=== PATIENT | male | born 1965 | race Caucasian/White ===

== ENCOUNTER 2017-05-15 10:04 | Day surgery (SDC) | payer OTHER ==
[2017-05-15] MEDS ORDERED: PROPOFOL 0 ML (11:01)
[2017-05-15] MEDS ORDERED: PROPOFOL 20 ML (11:09)
== END 2017-05-15 13:06 | disposition home or self-care (01) ==
LOC: GIL 10:04
DX: Z12.11 Encounter for screening for malignant neoplasm of colon (principal); K57.90 Diverticulosis of intestine, part unspecified, without perforation or abscess without bleeding; K64.8 Other hemorrhoids; E11.9 Type 2 diabetes mellitus without complications; I10 Essential (primary) hypertension; E66.01 Morbid (severe) obesity due to excess calories; Z68.42 Body mass index [BMI] 45.0-49.9, adult
CPT/HCPCS: 45378; 82962

== ENCOUNTER 2017-12-11 07:12 | Inpatient (IN) | payer OTHER ==
[2017-12-11] MEDS: ONDANSETRON 4 MG INJ IV (07:32)
[2017-12-11] MEDS: IPRATROPIUM (NEB) 0.5 MG/2.5 ML AMP INH (07:32)
[2017-12-11] MEDS: ALBUTEROL 0.083% (NEB) 2.5 MG/3 ML AMP INH (07:32)
[2017-12-11] MEDS: morphine 4 MG/ML VIAL IV (07:39)
[2017-12-11] MEDS: SOD CHLORIDE 0.9% 1,000 ML IV (07:46)
[2017-12-11 08:00] LABS: ADD MAN DIFF? NO
[2017-12-11 08:02] LABS: WHITE BLOOD COUNT 8.6 10^3/ul (4.8-10.8)
[2017-12-11 08:02] LABS: BASOPHIL # 0.1 10^3/ul (0.0-0.1); BASOPHILS % 0.6 % (0.0-2.0); EOSINOPHILS # 0.2 10^3/ul (0.0-0.5); EOSINOPHILS % 2.6 % (0.0-7.0); HEMATOCRIT 53.9 % (42.0-52.0); HEMOGLOBIN 16.3 g/dl (14.0-18.0); LYMPHOCYTES # 1.2 10^3/ul (0.8-2.9); MEAN CORPUSCULAR HEMOGLOBIN 26.7 pg (29.0-33.0); MEAN CORPUSCULAR HGB CONC 30.2 g/dl (32.0-37.0); MEAN CORPUSCULAR VOLUME 88.4 fl (82.0-101.0); MEAN PLATELET VOLUME 10.1 fl (7.4-10.4); MONOCYTE # 0.5 10^3/ul (0.3-0.9); MONOCYTES % 6.2 % (0.0-11.0); NEUTROPHIL # 6.5 10^3/ul (1.6-7.5); NEUTROPHILS % 75.8 % (39.0-77.0); PLATELET COUNT 225 10^3/UL (140-415)
[2017-12-11 08:18] LABS: ALANINE AMINOTRANSFERASE 66 IU/L (13-69); ALBUMIN 3.8 g/dl (3.3-4.9); ALKALINE PHOSPHATASE 82 IU/L (42-121); AMYLASE 43 U/L (11-123); ANION GAP 11 (8-16); ASPARTATE AMINO TRANSFERASE 94 IU/L (15-46); BILIRUBIN,INDIRECT 0.5 mg/dl (0-1.1); BILIRUBIN,TOTAL 0.5 mg/dl (0.2-1.3); BLOOD UREA NITROGEN 15 mg/dl (7-20); CALCIUM 8.7 mg/dl (8.4-10.2); CARBON DIOXIDE 33 mmol/L (21-31); CHLORIDE 98 mmol/L (97-110); CREATININE 0.65 mg/dl (0.61-1.24); GLUCOSE 274 mg/dl (70-220); LIPASE 79 U/L (23-300); POTASSIUM 4.5 mmol/L (3.5-5.1); SODIUM 137 mmol/L (135-144); TOTAL PROTEIN 7.6 g/dl (6.1-8.1)
[2017-12-11 08:29] LABS: B-TYPE NATRIURETIC PEPTIDE 55 PG/ML (0-125); TROPONIN-I < 0.010 ng/ml (0.000-0.120)
[2017-12-11 08:31] LABS: INR 0.96; PARTIAL THROMBOPLASTIN TIME 23.7 Sec (25.0-35.0); PROTIME 12.9 Sec (11.9-14.9)
[2017-12-11 08:34] LABS: D-DIMER 2416.69 ng/ml (<460)
[2017-12-11 09:17] LABS: ADD UMIC YES; UR ASCORBIC ACID 20 mg/dL (NEGATIVE); UR BILIRUBIN (Dip) NEGATIVE (NEGATIVE); UR BLOOD (Dip) NEGATIVE (NEGATIVE); UR CLARITY CLEAR (CLEAR); UR COLOR YELLOW (YELLOW); UR GLUCOSE (Dip) 3+ mg/dL (NEGATIVE); UR KETONES (Dip) NEGATIVE (NEGATIVE); UR LEUKOCYTE ESTERASE (Dip) NEGATIVE Leu/ul (NEGATIVE); UR MUCUS FEW /HPF (NONE SEEN); UR NITRITE (Dip) NEGATIVE (NEGATIVE); UR RBC 1 /HPF (0-5); UR SPECIFIC GRAVITY (Dip) 1.023 (1.003-1.030); UR TOTAL PROTEIN (Dip) 1+ mg/dl (NEGATIVE); UR UROBILINOGEN (Dip) NEGATIVE (NEGATIVE); UR WBC 1 /HPF (0-5)
[2017-12-11] MEDS: SOD CHLORIDE 0.9% 100 ML (10:05)
[2017-12-11] MEDS: IOHEXOL 100 ML (10:05)
[2017-12-11] MEDS: IOHEXOL 350MG/ML 50 ML BTL (10:06)
[2017-12-11] MEDS ORDERED: hydrALAzine 20 MG INJ (10:26)
[2017-12-11] MEDS: ENOXAPARIN 60 MG/0.6 ML SYG SC (10:31)
[2017-12-11] MEDS: hydrALAzine 20 MG INJ IV (10:32)
[2017-12-11] MEDS ORDERED: ACETAMINOPHEN 325 MG TAB PO (11:00)
[2017-12-11] MEDS ORDERED: ONDANSETRON 4 MG INJ IV ×2 (11:00→15:00)
[2017-12-11] MEDS: IPRATROPIUM (NEB) 0.5 MG/2.5 ML AMP NEB (11:34)
[2017-12-11] MEDS: ALBUTEROL 0.083% (NEB) 2.5 MG/3 ML AMP NEB (11:34)
[2017-12-11] MEDS: SOD CHLORIDE 0.9% 500 ML IV ×2 (12:18→12:19)
[2017-12-11] MEDS ORDERED: HEPARIN 1000 UNITS/ML 10 ML INJ IV ×2 (15:00)
[2017-12-11] MEDS ORDERED: ZOLPIDEM 5 MG TAB PO (15:00)
[2017-12-11] MEDS ORDERED: LORAZEPAM 0.5 MG TAB PO (15:00)
[2017-12-11] MEDS ORDERED: hydrALAzine 20 MG INJ IV (15:30)
[2017-12-11] MEDS ORDERED: ALBUTEROL 0.083% (NEB) 2.5 MG/3 ML AMP HHN (15:30)
[2017-12-11 16:05] LABS: CREATINE KINASE 28 IU/L (23-200)
[2017-12-11 16:19] LABS: CK INDEX 0.8; CK-MB < 0.22 ng/ml (0.0-2.4); TROPONIN-I < 0.010 ng/ml (0.000-0.120)
[2017-12-11] MEDS: DOCUSATE SODIUM 100 MG CAP PO (16:53)
[2017-12-11] MEDS: INSULIN GLARGINE [LANTus] (100 UNITS/ML) SYG SC (17:03)
[2017-12-11] MEDS: metFORMIN 500 MG TAB PO (17:05)
[2017-12-11] MEDS: INSULIN ASPART [NOVOLOG] 3 ML PEN SC ×2 (17:10→20:25)
[2017-12-11 20:10] LABS: AMPHETAMINE/METHAMPHETAMINE Negative (NEGATIVE); BARBITURATES Negative (NEGATIVE); BENZODIAZEPINES Negative (NEGATIVE); CANNABINOIDS Negative (NEGATIVE); COCAINE Negative (NEGATIVE); OPIATES Positive (NEGATIVE)
[2017-12-11] MEDS: FAMOTIDINE 20 MG TAB PO (20:21)
[2017-12-11 23:28] LABS: CREATINE KINASE 29 IU/L (23-200)
[2017-12-11] MEDS: HEPARIN 25000 UNITS/250 ML 250 ML IV (23:29)
[2017-12-12] MEDS: ACCU-CHEK XX (02:47)
[2017-12-12] MEDS: DOCUSATE SODIUM 100 MG CAP PO ×3 (02:47→21:04)
[2017-12-12] MEDS: INSULIN ASPART [NOVOLOG] 3 ML PEN SC ×5 (03:40→21:00)
[2017-12-12] MEDS: ACETAMINOPHEN 325 MG TAB PO (05:37)
[2017-12-12 06:04] LABS: ADD MAN DIFF? NO
[2017-12-12 06:14] LABS: BASOPHIL # 0.1 10^3/ul (0.0-0.1); BASOPHILS % 0.5 % (0.0-2.0); EOSINOPHILS # 0.3 10^3/ul (0.0-0.5); EOSINOPHILS % 3.5 % (0.0-7.0); HEMATOCRIT 54.9 % (42.0-52.0); HEMOGLOBIN 16.3 g/dl (14.0-18.0); LYMPHOCYTES # 1.3 10^3/ul (0.8-2.9); LYMPHOCYTES % 13.9 % (15.0-51.0); MEAN CORPUSCULAR HEMOGLOBIN 26.8 pg (29.0-33.0); MEAN CORPUSCULAR HGB CONC 29.7 g/dl (32.0-37.0); MEAN CORPUSCULAR VOLUME 90.3 fl (82.0-101.0); MEAN PLATELET VOLUME 10.2 fl (7.4-10.4); MONOCYTE # 0.7 10^3/ul (0.3-0.9); MONOCYTES % 7.7 % (0.0-11.0); NEUTROPHILS % 73.7 % (39.0-77.0); PLATELET COUNT 238 10^3/UL (140-415); RED BLOOD COUNT 6.08 10^6/ul (4.70-6.10)
[2017-12-12 06:14] LABS: WHITE BLOOD COUNT 9.5 10^3/ul (4.8-10.8)
[2017-12-12 06:22] LABS: INR 0.98; PROTIME 13.1 Sec (11.9-14.9)
[2017-12-12] MEDS: morphine 2 MG INJ IV (06:32)
[2017-12-12 06:38] LABS: PARTIAL THROMBOPLASTIN TIME 75.7 Sec (25.0-35.0)
[2017-12-12 06:40] LABS: HEMOGLOBIN A1C 10.2 % (0-5.9)
[2017-12-12 06:55] LABS: ALANINE AMINOTRANSFERASE 73 IU/L (13-69); ALBUMIN 3.8 g/dl (3.3-4.9); ALBUMIN/GLOBULIN RATIO 1.05; ALKALINE PHOSPHATASE 82 IU/L (42-121); ANION GAP 10 (8-16); ASPARTATE AMINO TRANSFERASE 101 IU/L (15-46); BILIRUBIN,INDIRECT 0.4 mg/dl (0-1.1); BILIRUBIN,TOTAL 0.4 mg/dl (0.2-1.3); BLOOD UREA NITROGEN 14 mg/dl (7-20); CALCIUM 8.8 mg/dl (8.4-10.2); CARBON DIOXIDE 37 mmol/L (21-31); CHLORIDE 95 mmol/L (97-110); CHOLESTEROL 147 mg/dl (100-200); CREATININE 0.73 mg/dl (0.61-1.24); GLUCOSE 243 mg/dl (70-220); HDL CHOLESTEROL 36 mg/dl (28-71); LDL CHOLESTEROL,CALCULATED 86 mg/dl; POTASSIUM 5.4 mmol/L (3.5-5.1); SODIUM 137 mmol/L (135-144); TOTAL PROTEIN 7.4 g/dl (6.1-8.1); TRIGLYCERIDES 125 mg/dl (0-149)
[2017-12-12] MEDS: FAMOTIDINE 20 MG TAB PO ×2 (08:14→21:04)
[2017-12-12] MEDS: LISINOPRIL 20 MG TAB PO (08:14)
[2017-12-12] MEDS: metFORMIN 500 MG TAB PO (08:14)
[2017-12-12] MEDS: INSULIN GLARGINE [LANTus] (100 UNITS/ML) SYG SC (08:16)
[2017-12-12] MEDS ORDERED: LISINOPRIL 20 MG TAB PO (09:00)
[2017-12-12] MEDS ORDERED: OXYCODONE/ACETAMINOPHEN (10/325) TAB PO (11:30)
[2017-12-12 13:42] LABS: POTASSIUM 4.9 mmol/L (3.5-5.1)
[2017-12-12 14:10] LABS: PARTIAL THROMBOPLASTIN TIME 102.3 Sec (25.0-35.0)
[2017-12-12] MEDS: HEPARIN 25000 UNITS/250 ML 250 ML IV (14:19)
[2017-12-12] MEDS: metFORMIN 850 MG TAB PO (17:44)
[2017-12-12 18:30] LABS: PARTIAL THROMBOPLASTIN TIME 104.8 Sec (25.0-35.0)
[2017-12-13] MEDS: morphine LIQ (10 MG/5 ML) CUP PO (01:30)
[2017-12-13 01:44] LABS: PARTIAL THROMBOPLASTIN TIME 85.6 Sec (25.0-35.0)
[2017-12-13] MEDS: HEPARIN 25000 UNITS/250 ML 250 ML IV ×3 (01:46→18:45)
[2017-12-13] MEDS: ACCU-CHEK XX (02:00)
[2017-12-13] MEDS: ACETAMINOPHEN 325 MG TAB PO (04:38)
[2017-12-13 06:03] LABS: WHITE BLOOD COUNT 9.6 10^3/ul (4.8-10.8)
[2017-12-13 06:03] LABS: ADD MAN DIFF? NO; BASOPHILS % 0.4 % (0.0-2.0); EOSINOPHILS # 0.3 10^3/ul (0.0-0.5); EOSINOPHILS % 3.2 % (0.0-7.0); HEMATOCRIT 56.5 % (42.0-52.0); HEMOGLOBIN 16.6 g/dl (14.0-18.0); IMMATURE GRANS #M 0.07 10^3/ul; IMMATURE GRANS % (M) 0.7 %; LYMPHOCYTES # 1.4 10^3/ul (0.8-2.9); LYMPHOCYTES % 14.3 % (15.0-51.0); MEAN CORPUSCULAR HEMOGLOBIN 26.9 pg (29.0-33.0); MEAN CORPUSCULAR HGB CONC 29.4 g/dl (32.0-37.0); MEAN CORPUSCULAR VOLUME 91.4 fl (82.0-101.0); MONOCYTE # 0.8 10^3/ul (0.3-0.9); MONOCYTES % 8.1 % (0.0-11.0); NEUTROPHILS % 73.3 % (39.0-77.0); PLATELET COUNT 250 10^3/UL (140-415); RED BLOOD COUNT 6.18 10^6/ul (4.70-6.10)
[2017-12-13 06:30] LABS: INR 0.92; PROTIME 12.4 Sec (11.9-14.9)
[2017-12-13 06:32] LABS: ANION GAP 10 (8-16); BLOOD UREA NITROGEN 12 mg/dl (7-20); CALCIUM 8.8 mg/dl (8.4-10.2); CARBON DIOXIDE 39 mmol/L (21-31); CHLORIDE 93 mmol/L (97-110); CREATININE 0.64 mg/dl (0.61-1.24); GLUCOSE 242 mg/dl (70-220); MAGNESIUM 1.9 mg/dl (1.7-2.5); POTASSIUM 4.7 mmol/L (3.5-5.1); SODIUM 137 mmol/L (135-144)
[2017-12-13 08:01] LABS: HEPATITIS B SURFACE ANTIBODY POSITIVE (NEGATIVE)
[2017-12-13] MEDS: FAMOTIDINE 20 MG TAB PO ×2 (08:03→21:03)
[2017-12-13] MEDS: DOCUSATE SODIUM 100 MG CAP PO ×2 (08:03→21:03)
[2017-12-13] MEDS: LISINOPRIL 20 MG TAB PO (08:03)
[2017-12-13] MEDS: INSULIN GLARGINE [LANTus] (100 UNITS/ML) SYG SC (08:16)
[2017-12-13] MEDS: INSULIN ASPART [NOVOLOG] 3 ML PEN SC ×4 (08:16→21:00)
[2017-12-13] MEDS: metFORMIN 850 MG TAB PO ×2 (08:18→17:45)
[2017-12-13 09:54] LABS: HEPATITIS B SURFACE ANTIGEN NEGATIVE (NEGATIVE)
[2017-12-13 10:12] LABS: HEPATITIS C VIRAL ANTIBODY NEGATIVE (NEGATIVE)
[2017-12-13 11:28] LABS: PARTIAL THROMBOPLASTIN TIME 86.9 Sec (25.0-35.0)
[2017-12-13] MEDS: NALOXONE 2 MG SYG IV (11:58)
[2017-12-13] MEDS: NALOXONE (0.4 MG/ML) INJ IV (12:02)
[2017-12-13 18:17] LABS: PARTIAL THROMBOPLASTIN TIME 64.5 Sec (25.0-35.0)
[2017-12-14 01:53] LABS: PARTIAL THROMBOPLASTIN TIME 96.1 Sec (25.0-35.0)
[2017-12-14] MEDS: ACCU-CHEK XX (01:59)
[2017-12-14] MEDS: HEPARIN 25000 UNITS/250 ML 250 ML IV ×2 (05:39→18:27)
[2017-12-14 05:44] LABS: ADD MAN DIFF? NO
[2017-12-14 05:47] LABS: BASOPHILS % 0.3 % (0.0-2.0); EOSINOPHILS # 0.1 10^3/ul (0.0-0.5); HEMATOCRIT 54.6 % (42.0-52.0); HEMOGLOBIN 15.9 g/dl (14.0-18.0); IMMATURE GRANS #M 0.07 10^3/ul; IMMATURE GRANS % (M) 0.8 %; LYMPHOCYTES # 0.8 10^3/ul (0.8-2.9); LYMPHOCYTES % 9.4 % (15.0-51.0); MEAN CORPUSCULAR HEMOGLOBIN 26.5 pg (29.0-33.0); MEAN CORPUSCULAR HGB CONC 29.1 g/dl (32.0-37.0); MEAN PLATELET VOLUME 9.9 fl (7.4-10.4); MONOCYTE # 0.7 10^3/ul (0.3-0.9); MONOCYTES % 7.6 % (0.0-11.0); NEUTROPHIL # 7.3 10^3/ul (1.6-7.5); NEUTROPHILS % 80.9 % (39.0-77.0); PLATELET COUNT 230 10^3/UL (140-415); RED CELL DISTRIBUTION WIDTH 14.1 % (11.5-14.5)
[2017-12-14] MEDS: ACETAMINOPHEN 325 MG TAB PO (06:46)
[2017-12-14 06:58] LABS: ANION GAP 10 (8-16); BLOOD UREA NITROGEN 12 mg/dl (7-20); CALCIUM 8.6 mg/dl (8.4-10.2); CARBON DIOXIDE 39 mmol/L (21-31); CHLORIDE 91 mmol/L (97-110); CREATININE 0.56 mg/dl (0.61-1.24); GLUCOSE 228 mg/dl (70-220); POTASSIUM 4.8 mmol/L (3.5-5.1); SODIUM 135 mmol/L (135-144)
[2017-12-14] MEDS: LISINOPRIL 20 MG TAB PO (08:06)
[2017-12-14] MEDS: DOCUSATE SODIUM 100 MG CAP PO ×2 (08:06→20:26)
[2017-12-14] MEDS: FAMOTIDINE 20 MG TAB PO ×2 (08:06→20:26)
[2017-12-14] MEDS: metFORMIN 850 MG TAB PO ×2 (08:06→18:17)
[2017-12-14] MEDS: INSULIN GLARGINE [LANTus] (100 UNITS/ML) SYG SC (08:13)
[2017-12-14] MEDS: INSULIN ASPART [NOVOLOG] 3 ML PEN SC ×5 (08:13→20:35)
[2017-12-14 10:08] LABS: PARTIAL THROMBOPLASTIN TIME 92.8 Sec (25.0-35.0)
[2017-12-14 13:08] LABS: AADO2 Arterial 89.1 mmHg (7.0-24.0); Allen Test ACCEPTAB; Arterial Base Excess 9.8 mmol/L (-3.0-3); Arterial Blood Gas Oxygen Sat 93.1 mmHG (95.0-98.0); Arterial COHb 1.2 % (0.0-3.0); Arterial Fraction of Oxyhgb 91.6 % (93.0-99.0); Arterial HCO3 41.2 mmol/L (22.0-26.0); Arterial MetHb 0.4 % (0.0-1.5); Arterial Total Hemglobin 16.9 g/dl (12.0-18.0); Arterial pCO2 87.9 mmhg (35-45); MODE NASAL CANNULA; Site Left Radial
[2017-12-14 17:33] LABS: Allen Test ACCEPTAB; Arterial Base Excess 10.5 mmol/L (-3.0-3); Arterial Blood Gas Oxygen Sat 93.3 mmHG (95.0-98.0); Arterial COHb 1.7 % (0.0-3.0); Arterial Fraction of Oxyhgb 91.5 % (93.0-99.0); Arterial HCO3 40.4 mmol/L (22.0-26.0); Arterial MetHb 0.2 % (0.0-1.5); Arterial Total Hemglobin 15.8 g/dl (12.0-18.0); Arterial pCO2 78.6 mmhg (35-45); Blood Gas IEPAP 18/5; Blood Gas PS 13; MODE MASK - BIPAP; Site Left Radial
[2017-12-15] MEDS: ACCU-CHEK XX (02:05)
[2017-12-15] MEDS: HEPARIN 25000 UNITS/250 ML 250 ML IV ×2 (05:32→17:39)
[2017-12-15 05:51] LABS: ADD MAN DIFF? NO
[2017-12-15 06:02] LABS: ABNORMAL IP MESSAGE 1; BASOPHIL # 0.1 10^3/ul (0.0-0.1); BASOPHILS % 0.6 % (0.0-2.0); EOSINOPHILS # 0.3 10^3/ul (0.0-0.5); EOSINOPHILS % 3.1 % (0.0-7.0); HEMATOCRIT 53.9 % (42.0-52.0); HEMOGLOBIN 15.6 g/dl (14.0-18.0); IMMATURE GRANS #M 0.08 10^3/ul; LYMPHOCYTES # 0.9 10^3/ul (0.8-2.9); LYMPHOCYTES % 10.7 % (15.0-51.0); MEAN CORPUSCULAR HEMOGLOBIN 26.4 pg (29.0-33.0); MEAN CORPUSCULAR HGB CONC 28.9 g/dl (32.0-37.0); MEAN CORPUSCULAR VOLUME 91.2 fl (82.0-101.0); MEAN PLATELET VOLUME 10.2 fl (7.4-10.4); MONOCYTE # 0.7 10^3/ul (0.3-0.9); MONOCYTES % 8.8 % (0.0-11.0); NEUTROPHIL # 6.2 10^3/ul (1.6-7.5); NEUTROPHILS % 75.8 % (39.0-77.0); PLATELET COUNT 232 10^3/UL (140-415); POSITIVE DIFF @See below; RED BLOOD COUNT 5.91 10^6/ul (4.70-6.10); RED CELL DISTRIBUTION WIDTH 13.8 % (11.5-14.5)
[2017-12-15 06:02] LABS: WHITE BLOOD COUNT 8.2 10^3/ul (4.8-10.8)
[2017-12-15 06:16] LABS: INR 0.94; PROTIME 12.7 Sec (11.9-14.9)
[2017-12-15 06:38] LABS: PARTIAL THROMBOPLASTIN TIME 82.3 Sec (25.0-35.0)
[2017-12-15 06:40] LABS: ANION GAP 11 (8-16); BLOOD UREA NITROGEN 17 mg/dl (7-20); CALCIUM 8.9 mg/dl (8.4-10.2); CARBON DIOXIDE 39 mmol/L (21-31); CHLORIDE 93 mmol/L (97-110); CREATININE 0.62 mg/dl (0.61-1.24); GLUCOSE 185 mg/dl (70-220); POTASSIUM 4.7 mmol/L (3.5-5.1); SODIUM 138 mmol/L (135-144)
[2017-12-15] MEDS: FAMOTIDINE 20 MG TAB PO ×2 (08:32→20:21)
[2017-12-15] MEDS: metFORMIN 850 MG TAB PO ×2 (08:33→17:23)
[2017-12-15] MEDS: LISINOPRIL 20 MG TAB PO (08:34)
[2017-12-15] MEDS: DOCUSATE SODIUM 100 MG CAP PO ×2 (08:34→20:21)
[2017-12-15] MEDS: INSULIN GLARGINE [LANTus] (100 UNITS/ML) SYG SC (08:38)
[2017-12-15] MEDS: INSULIN ASPART [NOVOLOG] 3 ML PEN SC ×7 (08:40→21:00)
[2017-12-15 09:20] LABS: AADO2 Arterial 134.3 mmHg (7.0-24.0); Allen Test ACCEPTAB; Arterial Base Excess 10.5 mmol/L (-3.0-3); Arterial Blood Gas Oxygen Sat 95.4 mmHG (95.0-98.0); Arterial COHb 1.5 % (0.0-3.0); Arterial Fraction of Oxyhgb 93.7 % (93.0-99.0); Arterial HCO3 38.2 mmol/L (22.0-26.0); Arterial MetHb 0.3 % (0.0-1.5); Arterial Total Hemglobin 16.5 g/dl (12.0-18.0); Arterial pCO2 61.8 mmhg (35-45); MODE NASAL CANNULA; Site Left Radial
[2017-12-16] MEDS: ACCU-CHEK XX (01:32)
[2017-12-16 06:28] LABS: INR 0.99; PROTIME 13.2 Sec (11.9-14.9)
[2017-12-16 06:46] LABS: PARTIAL THROMBOPLASTIN TIME 98.6 Sec (25.0-35.0)
[2017-12-16] MEDS: HEPARIN 25000 UNITS/250 ML 250 ML IV (06:47)
[2017-12-16] MEDS: INSULIN ASPART [NOVOLOG] 3 ML PEN SC ×7 (07:53→21:00)
[2017-12-16] MEDS: metFORMIN 850 MG TAB PO ×2 (08:05→17:32)
[2017-12-16] MEDS: INSULIN GLARGINE [LANTus] (100 UNITS/ML) SYG SC (08:13)
[2017-12-16] MEDS: FAMOTIDINE 20 MG TAB PO ×2 (09:37→21:31)
[2017-12-16] MEDS: LISINOPRIL 20 MG TAB PO (09:37)
[2017-12-16] MEDS: DOCUSATE SODIUM 100 MG CAP PO ×2 (09:37→21:31)
[2017-12-16] MEDS: LINAGLIPTIN 5 MG TABLET PO (09:38)
[2017-12-16] MEDS: RIVAROXABAN 15 MG TABLET PO ×2 (11:03→17:32)
[2017-12-17] MEDS: ACCU-CHEK XX (02:00)
[2017-12-17 05:56] LABS: ADD MAN DIFF? NO
[2017-12-17 06:07] LABS: BASOPHIL # 0.1 10^3/ul (0.0-0.1); BASOPHILS % 0.6 % (0.0-2.0); EOSINOPHILS # 0.4 10^3/ul (0.0-0.5); EOSINOPHILS % 4.9 % (0.0-7.0); HEMOGLOBIN 15.1 g/dl (14.0-18.0); IMMATURE GRANS #M 0.07 10^3/ul; IMMATURE GRANS % (M) 0.8 %; MEAN CORPUSCULAR HEMOGLOBIN 26.6 pg (29.0-33.0); MEAN CORPUSCULAR HGB CONC 30.2 g/dl (32.0-37.0); MEAN PLATELET VOLUME 9.9 fl (7.4-10.4); MONOCYTE # 0.8 10^3/ul (0.3-0.9); MONOCYTES % 9.2 % (0.0-11.0); NEUTROPHIL # 6.2 10^3/ul (1.6-7.5); NEUTROPHILS % 72.5 % (39.0-77.0); PLATELET COUNT 237 10^3/UL (140-415); RED BLOOD COUNT 5.68 10^6/ul (4.70-6.10); RED CELL DISTRIBUTION WIDTH 14.4 % (11.5-14.5)
[2017-12-17 06:07] LABS: WHITE BLOOD COUNT 8.6 10^3/ul (4.8-10.8)
[2017-12-17 06:32] LABS: ALANINE AMINOTRANSFERASE 69 IU/L (13-69); ALBUMIN 3.4 g/dl (3.3-4.9); ALBUMIN/GLOBULIN RATIO 0.94; ALKALINE PHOSPHATASE 61 IU/L (42-121); ANION GAP 10 (8-16); ASPARTATE AMINO TRANSFERASE 105 IU/L (15-46); BILIRUBIN,INDIRECT 0.5 mg/dl (0-1.1); BILIRUBIN,TOTAL 0.5 mg/dl (0.2-1.3); BLOOD UREA NITROGEN 17 mg/dl (7-20); CALCIUM 8.9 mg/dl (8.4-10.2); CARBON DIOXIDE 35 mmol/L (21-31); CHLORIDE 97 mmol/L (97-110); CREATININE 0.56 mg/dl (0.61-1.24); GLUCOSE 114 mg/dl (70-220); PHOSPHORUS 4.4 mg/dl (2.5-4.9); POTASSIUM 4.1 mmol/L (3.5-5.1); SODIUM 138 mmol/L (135-144)
[2017-12-17] MEDS: INSULIN ASPART [NOVOLOG] 3 ML PEN SC ×6 (08:00→17:58)
[2017-12-17] MEDS: RIVAROXABAN 15 MG TABLET PO ×2 (09:28→18:31)
[2017-12-17] MEDS: DOCUSATE SODIUM 100 MG CAP PO (09:28)
[2017-12-17] MEDS: LISINOPRIL 20 MG TAB PO (09:28)
[2017-12-17] MEDS: FAMOTIDINE 20 MG TAB PO (09:28)
[2017-12-17] MEDS: metFORMIN 850 MG TAB PO ×2 (09:29→18:31)
[2017-12-17] MEDS: LINAGLIPTIN 5 MG TABLET PO (09:29)
[2017-12-17] MEDS: INSULIN GLARGINE [LANTus] (100 UNITS/ML) SYG SC (10:28)
[2017-12-17] MEDS: MAGNESIUM HYDROXIDE 30ML CUP PO (18:31)
== END 2017-12-17 21:10 | disposition home or self-care (01) | DRG 175 ==
LOC: E/R 07:12 → 6WM 10:44
DX: I26.99 Other pulmonary embolism without acute cor pulmonale (principal); J96.22 Acute and chronic respiratory failure with hypercapnia; Z68.42 Body mass index [BMI] 45.0-49.9, adult; I16.1 Hypertensive emergency; E66.01 Morbid (severe) obesity due to excess calories; G44.209 Tension-type headache, unspecified, not intractable; K76.0 Fatty (change of) liver, not elsewhere classified; E11.65 Type 2 diabetes mellitus with hyperglycemia; G47.33 Obstructive sleep apnea (adult) (pediatric)
CPT/HCPCS: 36415; 36600; 70450; 71045; 71275; 80048; 80053; 80061; 80307; 81001; 82150; 82550; 82553; 82803; 82962; 83036; 83690; 83735; 83880; 84100; 84132; 84443; 84484; 85025; 85378; 85610; 85730; 86706; 86803; 87086; 87340; 93005; 93306; 93970; 94640; 94660; 94664; 96372; 96374; 96375; 99291-25

== ENCOUNTER 2018-03-05 05:19 | Emergency (ER) | payer OTHER ==
[2018-03-05] MEDS: ASPIRIN 325 MG TAB PO (05:59)
[2018-03-05 06:00] LABS: ADD MAN DIFF? NO
[2018-03-05] MEDS ORDERED: NITROGLYCERIN (SL) 0.4 MG TAB SL (06:00)
[2018-03-05 06:02] LABS: BASOPHIL # 0.1 10^3/ul (0.0-0.1); BASOPHILS % 0.8 % (0.0-2.0); EOSINOPHILS # 0.2 10^3/ul (0.0-0.5); EOSINOPHILS % 2.7 % (0.0-7.0); HEMATOCRIT 42.2 % (42.0-52.0); HEMOGLOBIN 13.5 g/dl (14.0-18.0); LYMPHOCYTES # 1.6 10^3/ul (0.8-2.9); LYMPHOCYTES % 17.5 % (15.0-51.0); MEAN CORPUSCULAR VOLUME 84.4 fl (82.0-101.0); MEAN PLATELET VOLUME 9.7 fl (7.4-10.4); MONOCYTE # 0.7 10^3/ul (0.3-0.9); MONOCYTES % 7.6 % (0.0-11.0); NEUTROPHIL # 6.4 10^3/ul (1.6-7.5); NEUTROPHILS % 71.1 % (39.0-77.0); PLATELET COUNT 238 10^3/UL (140-415); RED CELL DISTRIBUTION WIDTH 14.1 % (11.5-14.5)
[2018-03-05 06:22] LABS: ANION GAP 10 (5-13); BLOOD UREA NITROGEN 21 mg/dl (7-20); CALCIUM 9.1 mg/dl (8.4-10.2); CARBON DIOXIDE 28 mmol/L (21-31); CHLORIDE 104 mmol/L (97-110); CREATININE 0.72 mg/dl (0.61-1.24); Estimated GFR > 60 mL/min (>60); GLUCOSE 95 mg/dl (70-220); POTASSIUM 3.9 mmol/L (3.5-5.1); SODIUM 142 mmol/L (135-144)
[2018-03-05] MEDS: SOD CHLORIDE 0.9% 1,000 ML IV (06:23)
[2018-03-05 06:34] LABS: TROPONIN-I < 0.012 ng/ml (0.000-0.120)
[2018-03-05] MEDS: SOD CHLORIDE 0.9% 100 ML (07:01)
[2018-03-05] MEDS: IOHEXOL 300MG/ML 150 ML BTL (07:01)
[2018-03-05 07:36] LABS: TRIGLYCERIDES 82 mg/dl (0-149)
[2018-03-05 07:37] LABS: B-TYPE NATRIURETIC PEPTIDE 55 PG/ML (0-125)
== END 2018-03-05 09:54 | disposition left against medical advice (07) ==
LOC: E/R 05:19
DX: R07.9 Chest pain, unspecified (principal); I10 Essential (primary) hypertension; E11.9 Type 2 diabetes mellitus without complications; Z79.01 Long term (current) use of anticoagulants; Z79.4 Long term (current) use of insulin
CPT/HCPCS: 36415; 71045; 71260; 80048; 83880; 84478; 84484; 85025; 93005; 99285-25